=== PATIENT | female | born 1980 | race Hispanic/Latino ===

== ENCOUNTER 2020-07-10 17:13 | Emergency (ER) | payer BC, SELFPAY | END 2020-07-10 19:14 | disposition home or self-care (01) | LOC: ERS 17:13 | DX: H92.01 Otalgia, right ear (principal); J30.9 Allergic rhinitis, unspecified | CPT/HCPCS: 99283 ==

== ENCOUNTER 2021-04-04 14:58 | Emergency (ER) | payer SELFPAY | END 2021-04-04 15:50 | disposition home or self-care (01) | LOC: ERS 14:58 | DX: S50.12XA Contusion of left forearm, initial encounter (principal); W22.8XXA Striking against or struck by other objects, initial encounter ==

== ENCOUNTER 2021-05-18 21:42 | Emergency (ER) | payer SELFPAY ==
[2021-05-18] MEDS ORDERED: Acetaminophen 500 MG TAB ONE (21:49)
[2021-05-19 14:31] LABS: SARS-CoV-2 PCR by NAA DETECTED (NotDetected)
== END 2021-05-18 23:15 | disposition home or self-care (01) ==
LOC: ERS 21:42
DX: U07.1 COVID-19 (principal); J45.909 Unspecified asthma, uncomplicated
CPT/HCPCS: 99283; U0003; U0005